=== PATIENT | female | born 1945 | race Caucasian/White ===

== ENCOUNTER → 2019-07-16 | Outpatient (CLI) | payer MEDICARE ==
--- NOTE | 2019-07-16 17:54 | XR ---
EXAMINATION TYPE: XR chest 2V DATE OF EXAM: 07/16/2019 COMPARISON: 10/24/2017 HISTORY: 74 year-old female respiratory infection, cough TECHNIQUE: Frontal and lateral views FINDINGS: Heart is upper limits of normal in size. Atherosclerotic arch calcifications. Mild diffuse interstiti al prominence is chronic in appearance. No consolidation or pleural effusion. Mild hyperinflation. IMPRESSION: Borderline heart size. Suspect underlying COPD. Clinically correlate. Chronic appearing changes. No d efinite acute process.
--- NOTE | 2019-07-21 09:04 | MM ---
Reason for exam: screening (asymptomatic). Last mammogram was performed 6 years and 6 months ago. History: Patient is postmenopausal and is nulliparous. Benign stereotactic core biopsy of the right breast, December 03, 2001. Core biopsy of the right breast. Took hormonal contraceptives for 9 years beginning at age 18. Physical Findings: A clinical breast exam by your physician is recommended on an annual basis and results should be correlated with mammographic findings. MG 3D Screening Mammo W/Cad Bilateral CC and MLO view(s) were taken. Prior study comparison: January 26, 2013, bilateral digital screening mammo w/CAD. November 26, 2010, bilateral digital screening mammogram. There are scattered fibroglandular densities. No significant changes when compared with prior studies. ASSESSMENT: Negative, BI-RAD 1 RECOMMENDATION: Routine screening mammogram of both breasts in 1 year.
== END ==
LOC: RADMAMWWP 14:56
PROVIDERS: ATTEND Internal Medicine
DX: Z12.31 Encounter for screening mammogram for malignant neoplasm of breast (principal); J06.9 Acute upper respiratory infection, unspecified
CPT/HCPCS: 71046; 77063; 77067